=== PATIENT | female | born 1965 | race African-American/Black ===

== ENCOUNTER 2016-08-14 10:02 | Emergency (ER) | payer OTHER ==
[~2016-08-14] VITALS: Ht 167.6 cm; Wt 81.2 kg
[~2016-08-14 10:02] MED LIST: AUGMENTIN875 MG PO; FLEXERIL10 MG PO; MOTRIN800 MG PO; PREDNISONE10 MG PO; no home
[2016-08-14 10:27] VITALS: BP 140/78
[2016-08-14] MEDS ORDERED: BENZ O STHETIC MM (12:10)
== END 2016-08-14 12:17 | disposition home or self-care (01) ==
LOC: EME 10:02
DX: J02.0 Streptococcal pharyngitis (principal)
CPT/HCPCS: 87651 90; 99281; 99284; J0561; J1100

== ENCOUNTER 2016-09-27 22:58 | Emergency (ER) | payer OTHER ==
[~2016-09-27] VITALS: Ht 167.6 cm; Wt 81.6 kg
[~2016-09-27 22:58] MED LIST changes: +BENZ O STHETIC MM
[2016-09-28] MEDS ORDERED: ZITHROMAX Z-PA250 MG PO (00:20)
[2016-09-28] MEDS ORDERED: VENTOLIN HFA18 GM IH (00:20)
[2016-09-28] MEDS ORDERED: ROBITUSSIN AC,T10 ML PO (00:20)
[2016-09-28 00:34] VITALS: BP 147/89
== END 2016-09-28 00:35 | disposition home or self-care (01) ==
LOC: EME 22:58
DX: J02.0 Streptococcal pharyngitis (principal)
CPT/HCPCS: 87651 90; 94640; 99281; 99284; J1100